=== PATIENT | male | born 1955 | race Hispanic/Latino ===

== ENCOUNTER 2020-04-08 17:57 | Inpatient (IN) | payer OTHER ==
[~2020-04-08] VITALS: Ht 172.7 cm; Wt 79.4 kg
[~2020-04-08 17:57] MED LIST: ETOMIDATE 2 MG/ML 10 ML INJ IV ONE; SUCCINYLCHOLINE CHLORIDE 20 MG/ML 10ML VIAL ONE
[2020-04-08] MEDS ORDERED: VANCOMYCIN 1GM/NS 250 ML 250 ML IV STA (18:11)
[2020-04-08] MEDS ORDERED: CALCIUM CHLORIDE 10% 1.36 MEQ/ML 10ML SYR IV STA (18:11)
[2020-04-08] MEDS ORDERED: CEFEPIME 1GM/NS 0.9% 50 ML 50 ML IV SCH (18:11)
[2020-04-08] MEDS ORDERED: SUCCINYLCHOLINE 200 MG/10 ML SYR IV STA (18:14)
[2020-04-08] MEDS ORDERED: ETOMIDATE 2 MG/ML 10 ML INJ IV STA (18:14)
[2020-04-08] MEDS ORDERED: MIDAZOLAM HCL 2 MG/2 ML VIAL IV PRN (18:15)
[2020-04-08] MEDS ORDERED: MIDAZOLAM HCL 50 MG in SODIUM CHLORIDE 0.9% 100 ML 90 ML IV PRN (18:15)
[2020-04-08] MEDS ORDERED: FENTANYL 2000MCG/NS 250 250 ML IV PRN (18:15)
[2020-04-08] MEDS ORDERED: CALCIUM GLUCONATE 10% INJ 0.465 MEQ/ML VIAL ONE (18:16)
[2020-04-08] MEDS ORDERED: SODIUM CHLORIDE 0.9% 250ML 250 ML ONE (18:17)
[2020-04-08] MEDS ORDERED: SODIUM CHLORIDE 0.9% 100 ML ONE ×2 (18:17→22:32)
[2020-04-08] MEDS ORDERED: SODIUM BICARBONATE 8.4% SYRING 50 ML ONE ×2 (18:23→19:45)
[2020-04-08 18:39] LABS: BASOPHILS # (AUTO) 0.2 (0.0-0.1); BASOPHILS % 0.8 % (0.0-1.0); EOSINOPHILS % 0.1 % (0.0-6.0); HEMATOCRIT 33.4 % (38.2-49.6); HEMOGLOBIN 10.6 g/dL (14.0-18.0); LYMPHOCYTES # (AUTO) 2.1 (1.0-3.2); LYMPHOCYTES % 10.4 % (18.0-39.1); MEAN CORPUSCULAR HEMOGLOBIN 29.9 pg (28-32); MEAN CORPUSCULAR HGB CONC 31.7 g/dL (31-35); MEAN CORPUSCULAR VOLUME 94.4 fL (81-99); MONOCYTES # (AUTO) 1.4 (0.2-0.8); MONOCYTES % 6.6 % (4.4-11.3); NEUTROPHILS # (AUTO) 15.8 (2.1-6.9); NEUTROPHILS % 76.7 % (38.7-80.0); PLATELET COUNT 329 x10e3/uL (140-360); RED BLOOD COUNT 3.54 x10e6/uL (4.3-5.7); RED CELL DISTRIBUTION WIDTH 15.2 % (11.7-14.4)
[2020-04-08] MEDS ORDERED: SODIUM BICARBONATE 8.4% INJ 50 ML SYR IV STA ×2 (19:00→19:43)
[2020-04-08 19:06] LABS: ALBUMIN 3.6 g/dL (3.5-5.0); ALBUMIN/GLOBULIN RATIO 0.8 (0.8-2.0); CALCIUM 8.5 mg/dL (8.4-10.2); CREATININE, SERUM 15.4 mg/dL (0.72-1.25)
[2020-04-08] MEDS ORDERED: DEXTROSE 50% SYRINGE 50 ML IV STA (19:07)
[2020-04-08 19:08] LABS: POTASSIUM 8.3 mmol/L (3.5-5.1)
[2020-04-08] MEDS ORDERED: SOD POLYSTYRENE SULFONATE SUSP 15 GM/60 ML BTL PO ONE (19:15)
[2020-04-08] MEDS ORDERED: INSULIN REGULAR, HUMAN 100 UNIT/1 ML 3ML VIAL IV ONE (19:15)
[2020-04-08 19:26] LABS: ANION GAP 44.3 mmol/L (8-16)
[2020-04-08] MEDS ORDERED: IOPAMIDOL 370 MG/ML 200 ML INFUS..BTL INJ ONE (19:35)
[2020-04-08] MEDS ORDERED: SODIUM CHLORIDE 0.9% 50ML 50 ML ONE (19:35)
[2020-04-08] MEDS ORDERED: MIDAZOLAM HCL 5MG/ML 10ML VIAL 100 ML IV PRN (19:45)
[2020-04-08 19:58] LABS: LYMPHOCYTES % (MANUAL) 9 % (19-48); MONOCYTES % (MANUAL) 7 % (3.4-9.0); NEUTROPHILS % (MANUAL) 84 % (40-74); PLATELET ESTIMATE ADEQUATE
[2020-04-08 19:59] LABS: PLATELET MORPHOLOGY COMMENT FEW LARGE; RBC MORPHOLOGY COMMENT NORMAL
[2020-04-08] MEDS ORDERED: MIDAZOLAM HCL 2 MG/2 ML VIAL ONE (20:10)
[2020-04-08 21:01] LABS: CREATINE KINASE MB 12.8 ng/mL (0-5.0)
[2020-04-08 22:00] VITALS: BP 162/43
[2020-04-08] MEDS ORDERED: DEXAMETHASONE SOD PHOS 10 MG/1 ML VIAL IV ONE (22:15)
[2020-04-08] MEDS ORDERED: LEVETIRACETAM 500MG/5ML VIAL 1,000 MG in SODIUM CHLORIDE 0.9% 100 ML 100 ML IV SCH (22:15)
[2020-04-08] MEDS ORDERED: MANNITOL 25% 12.5GM/50 ML VIAL IV ONE (22:15)
[2020-04-08 22:27] LABS: INR 1.53; PROTHROMBIN TIME 19.1 seconds (11.9-14.5)
[2020-04-08] MEDS ORDERED: LEVETIRACETAM 500 MG/5 ML VIAL IV ONE (22:27)
[2020-04-08 22:28] LABS: PARTIAL THROMBOPLASTIN TIME 47.4 seconds (23.8-35.5)
[2020-04-08] MEDS ORDERED: VANCOMYCIN 1GM/NS 250 ML 250 ML ONE (22:51)
[2020-04-08 23:00] VITALS: BP 157/38
[2020-04-08 23:16] LABS: ABG HCO3 18 mmol/L (22-26); ABG PCO2 40 mmHg (35-45); ABG PH 7.26 (7.35-7.45); ABG PO2 558 mmHg (80-105); ABG TCO2 19
[2020-04-08] MEDS ORDERED: SODIUM CHLORIDE 0.9% 1000ML 1,000 ML ONE (23:17)
[2020-04-08 23:22] VITALS: BP 162/43
[2020-04-09] VITALS: BP 91/43
[2020-04-09] MEDS ORDERED: ALBUMIN 25% 25GM 100ML 0.25 GM/ML BTL IV STA (00:14)
[2020-04-09 00:15] VITALS: BP 115/65
[2020-04-09] MEDS ORDERED: ALBUMIN 25% 12.5GM 50ML 100 ML IV ONE (00:19)
[2020-04-09 00:45] VITALS: BP 131/36
== END 2020-04-09 00:45 | disposition short-term general hospital (02) | DRG 208 ==
LOC: EDBD 17:59 → ER 17:59 → ERHOLD 21:37 → ICU 22:00
PROVIDERS: ADMIT Internal Medicine; ATTEND Internal Medicine
PROC: 5A1935Z Respiratory Ventilation, Less than 24 Consecutive Hours (ICD-10-PCS; principal; 2020-04-08)
PROC: 0BH17EZ Insertion of Endotracheal Airway into Trachea, Via Natural or Artificial Opening (ICD-10-PCS; 2020-04-08)
PROC: 5A1D70Z Performance of Urinary Filtration, Intermittent, Less than 6 Hours Per Day (ICD-10-PCS; 2020-04-08)
DX: J96.00 Acute respiratory failure, unspecified whether with hypoxia or hypercapnia (principal); I62.01 Nontraumatic acute subdural hemorrhage; N18.6 End stage renal disease; I60.9 Nontraumatic subarachnoid hemorrhage, unspecified; E87.2 Acidosis; I12.0 Hypertensive chronic kidney disease with stage 5 chronic kidney disease or end stage renal disease; E87.5 Hyperkalemia; D72.829 Elevated white blood cell count, unspecified; Z99.2 Dependence on renal dialysis; Z20.828 Contact with and (suspected) exposure to other viral communicable diseases
CPT/HCPCS: 31500; 36415; 36600; 51700; 70450; 71045; 71260; 74177; 80053; 82140; 82550; 82553; 82805; 83605; 84484; 85025; 85610; 85730; 87040; 93005; 94002; 99285; J0330; J0610; J0692; J1100; J1817; J2150; J2250; J3370; J7030; J7050; J7799; P9047; Q9967; U0002